=== PATIENT | female | born 1980 | race African-American/Black ===

== ENCOUNTER 2019-10-05 19:10 | Emergency (ER) | payer OTHER, SELFPAY ==
--- NOTE | 2019-10-05 21:00 | RAD ---
FOUR VIEWS RIGHT KNEE: History: History of fall three days ago, pain. FINDINGS: Joint spaces are preserved. No malalignment or fracture. No joint effusion. IMPRESSION: No fracture. POS: PPP
--- NOTE | 2019-10-05 21:49 | RAD ---
THREE VIEWS RIGHT SHOULDER: History: Patient fell three days ago. Pain. FINDINGS: The acromioclavicular and coracoclavicular distance is maintained. Glenohumeral joint space is preser harvey. No fracture or dislocation. IMPRESSION: Unremarkable three views right shoulder. POS: PPP
== END 2019-10-05 20:19 | disposition home or self-care (01) ==
LOC: ERS 19:10
DX: S46.911A Strain of unspecified muscle, fascia and tendon at shoulder and upper arm level, right arm, initial encounter (principal); S00.83XA Contusion of other part of head, initial encounter; S80.01XA Contusion of right knee, initial encounter; F43.10 Post-traumatic stress disorder, unspecified; W01.0XXA Fall on same level from slipping, tripping and stumbling without subsequent striking against object, initial encounter

== ENCOUNTER 2020-09-23 07:43 | Emergency (ER) | payer OTHER ==
--- NOTE | 2020-09-23 08:35 | RAD ---
Exam: Left elbow 4 views: HISTORY: Injury from a fall COMPARISON: None FINDINGS: Evidence for elbow joint effusion. Slightly comminuted essentially nondisplaced radial head fracture. IMPRESSION: Minimally comminuted essentially nondisplaced radial head fracture.
--- NOTE | 2020-09-23 08:38 | RAD ---
Exam: Left hip 2 views: HISTORY: Injury from a fall COMPARISON: None FINDINGS: Circumscribed 0.5 x 1.2 cm diameter opacity overlying the left hip joint. This may well represent an ossific density within overlying soft tissue and not be within the joint space. If it is in the joint space is consistent with an intra-articular body although again I highly doubt that possibility . No evidence for acute fracture or dislocation. IMPRESSION: No acute fracture or dislocation. Circumscribed opacity overlying the left hip region, nonspecific. If the patient has persistent, worsening, or unrelenting left hip pain, consider nonemergent follow-u p MRI.
== END 2020-09-23 09:25 | disposition home or self-care (01) ==
LOC: ERS 07:43
DX: S52.125A Nondisplaced fracture of head of left radius, initial encounter for closed fracture (principal); W19.XXXA Unspecified fall, initial encounter
CPT/HCPCS: 24650

== ENCOUNTER 2021-09-28 19:03 | Emergency (ER) | payer OTHER ==
[2021-09-29 13:44] LABS: SARS-CoV-2 PCR by NAA Not Detected (NotDetected)
== END 2021-09-28 20:47 | disposition home or self-care (01) ==
LOC: ERS 19:03
DX: R51.9 Headache, unspecified (principal); R05.9 Cough, unspecified; Z20.822 Contact with and (suspected) exposure to COVID-19; F17.210 Nicotine dependence, cigarettes, uncomplicated
CPT/HCPCS: 99283; U0003; U0005

== ENCOUNTER 2021-10-17 18:49 | Emergency (ER) | payer BC, OTHER ==
[2021-10-17] MEDS ORDERED: Fluorescein Opthalmic Strip ONE (21:43)
[2021-10-17] MEDS ORDERED: Proparacaine 0.5% Opth 15 ML BOT ONE (21:43)
== END 2021-10-17 22:10 | disposition home or self-care (01) ==
LOC: ERS 18:49
DX: S00.12XA Contusion of left eyelid and periocular area, initial encounter (principal); S00.31XA Abrasion of nose, initial encounter; F17.210 Nicotine dependence, cigarettes, uncomplicated; W23.1XXA Caught, crushed, jammed, or pinched between stationary objects, initial encounter
CPT/HCPCS: 99283

== ENCOUNTER 2025-04-30 11:50 | Emergency (ER) | payer OTHER ==
[2025-04-30 12:14] LABS: #Basophils Less than 0.03 10x3/uL (0.0-0.2); #Eosinophils 0.20 10x3/uL (0.0-0.7); #Monocytes 0.38 10x3/uL (0.11-0.59); #Neutrophils 2.06 10x3/uL (1.40-6.50); %Basophils 0.4 % (0.0-1.0); %Eosinophils 3.8 % (0.0-10.0); %Lymphocytes 48.8 % (21.0-51.0); %Monocytes 7.3 % (0.0-10.0); %Neutrophils 39.5 % (42.0-75.0); Hematocrit 33.9 % (36.0-47.0); Hemoglobin 11.5 g/dL (12.0-16.0); Mean Corpuscular Hemoglobin 31.5 pg (27.0-31.0); Mean Corpuscular Volume 92.9 fL (78.0-98.0); Platelet Count 186 10x3/uL (130-400); Red Blood Cell (RBC) Count 3.65 mill/uL (4.20-5.40); White Blood Cell (WBC) Count 5.21 10x3/uL (4.8-10.8)
[2025-04-30 12:28] LABS: INR-International Normal Ratio 1.1; PTT 28.9 sec (22.9-36.1); Prothrombin Time 13.8 sec (12.0-14.7)
[2025-04-30 12:39] LABS: ALT (SGPT) Less than 7 U/L (Less than 34); AST (SGOT) 19 U/L (11-34); Albumin 4.5 g/dL (3.1-4.5); Alkaline Phosphatase 53 U/L (40-110); Anion Gap 10 mmol/L (10-20); BUN (Urea Nitrogen) 9 mg/dL (7.0-18.7); Bilirubin, Total 0.4 mg/dL (0.3-1.2); Calc. Creatinine Clearance 0 mL/min (70-130); Calcium 9.2 mg/dL (7.8-10.44); Carbon Dioxide 22 mmol/L (22-29); Chloride 108 mmol/L (98-107); Globulin 3.8 g/dL (2.4-3.5); Glucose 86 mg/dL (70-105); Potassium 3.6 mmol/L (3.5-5.1); Sodium 136 mmol/L (136-145)
== END 2025-04-30 14:28 | disposition home or self-care (01) ==
LOC: ERS 11:50
DX: H53.8 Other visual disturbances (principal); R29.700 NIHSS score 0; F17.290 Nicotine dependence, other tobacco product, uncomplicated
CPT/HCPCS: 36416; 70450; 70496; 70498; 80053; 85025; 85610; 85730; 93005; 94760